=== PATIENT | male | born 1980 | race African-American/Black ===

== ENCOUNTER 2019-08-23 15:24 | Emergency (ER) | payer SELFPAY ==
[~2019-08-23] VITALS: Ht 182.9 cm; Wt 110.0 kg
--- NOTE | 2019-08-23 16:26 | RAD ---
CHEST AP ONLY History: Cough and sore throat.. Comparison: None FINDINGS: Note that the exam was obtained with lordotic positioning. Cardiomediastinal silhouette appears within normal limits. Low lung volumes. Slight elevation of the right hemidiaphragm. No evidence of pneumothorax. No evidence of pleural effusion. No evidence of focal infiltrate. Bones appear grossly intact. Small density is below the left clavicle, may be related to ossification at the coracoclavicular ligament attachment. IMPRESSION: No evidence of consolidating infiltrate. Electronically signed by: Armond Bazan MD (08/23/2019 4:22 PM) [facility]
[2019-08-23] MEDS ORDERED: IV NORMAL SALINE 1000ML BAG 1,000 ML IV SCH (16:51)
[2019-08-23] MEDS ORDERED: methylPREDNISolone SOD SUCC PF 125 MG/2 ML VIAL. IV ONE (17:00)
[2019-08-23] MEDS ORDERED: CLINDAMYCIN 900MG PREMIX 50 ML IV ONE (17:00)
[2019-08-23] MEDS ORDERED: KETOROLAC 30 MG/ML VIAL. IVP ONE (17:00)
--- NOTE | 2019-08-23 17:08 | PHYS DOC ---
Past Medical History Past Medical History: No Pertinent History (JITENDRA REIS MD) Past Surgical History: No Surgical History (JITENDRA REIS MD) Smoking Status: Never Smoker Alcohol Use: None (JITENDRA REIS MD) General Adult EDM: Chief Complaint: Sore throat HPI: HPI: Patient is a 39 year old male without history of medical problem who presents with complaint of sore throat. Patient states he has had sore throat for the last 1 week and was seen at urgent care and treated with Augmentin without improvement of his pain and complaining of dysphasia and constant pain in his throat and rated his pain 8/10. Patient denies fever, cough, myalgia, chest pain, shortness of breath, sore throat. (JITENDRA REIS MD) Review of Systems: Review of Systems: Constitutional: Denies fever or chills. [] Eyes: Denies change in visual acuity. [] HENT: Denies nasal congestion, report sore throat. [] Respiratory: Denies cough or shortness of breath. [] Cardiovascular: Denies chest pain or edema. [] GI: Denies abdominal pain, nausea, vomiting, bloody stools or diarrhea. [] : Denies dysuria. [] Musculoskeletal: Denies back pain or joint pain. [] Integument: Denies rash. [] Neurologic: Denies headache, focal weakness or sensory changes. [] Endocrine: Denies polyuria or polydipsia. [] Lymphatic: Denies swollen glands. [] Psychiatric: Denies depression or anxiety. [] (JITENDRA REIS MD) Heart Score: Risk Factors: Risk Factors: DM, Current or recent (<one month) smoker, HTN, HLP, family history of CAD, obesity. Risk Scores: Score 0 - 3: 2.5% MACE over next 6 weeks - Discharge Home Score 4 - 6: 20.3% MACE over next 6 weeks - Admit for Clinical Observation Score 7 - 10: 72.7% MACE over next 6 weeks - Early Invasive Strategies (JITENDRA REIS MD) Allergies: Allergies: Allergies Coded Allergies Type Severity Reaction Last Updated Verified No Known Drug Allergies 08/23/19 No (JITENDRA REIS MD) Physical Exam: PE: Constitutional: Well developed, well nourished,mild distress, non-toxic appearance. [] HENT: Normocephalic, atraumatic, bilateral external ears normal, oropharynx moist, tonsillar edema bilaterally with large amount of exudate, nose normal. [] Eyes: PERRLA, EOMI, conjunctiva normal, no discharge. [] Neck: Normal range of motion, no tenderness, supple, no stridor. [] Cardiovascular:Heart rate regular rhythm, no murmur [] Lungs & Thorax: Bilateral breath sounds clear to auscultation [] Abdomen: Bowel sounds normal, soft, no tenderness, no masses, no pulsatile masses. [] Skin: Warm, dry, no erythema, no rash. [] Back: No tenderness, no CVA tenderness. [] Extremities: No tenderness, no cyanosis, no clubbing, ROM intact, no edema. [] Neurologic: Alert and oriented X 3, normal motor function, normal sensory function, no focal deficits noted. [] Psychologic: Affect normal, judgement normal, mood normal. [] (JITENDRA REIS MD) Current Patient Data: Vital Signs: Vital Signs Date Time Temp Pulse Resp B/P (MAP) Pulse Ox O2 Delivery O2 Flow Rate FiO2 08/23/19 16:00 99.1 92 20 175/111 (132 97 Room Air 99.1 (JITENDRA REIS MD) EKG: EKG: [] (JITENDRA REIS MD) Radiology/Procedures: Radiology/Procedures: [facility] [address] [place] [address] IMAGING REPORT Signed PATIENT: DELIO HO ACCOUNT: [id number] : 1980 LOCATION: ER AGE: 39 SEX: M EXAM STATUS: REG ER ORD. PHYSICIAN: JITENDRA REIS MD REASON: Cough and sore throat PROCEDURE: CHEST AP ONLY CHEST AP ONLY History: Cough and sore throat.. Comparison: None FINDINGS: Note that the exam was obtained with lordotic positioning. Cardiomediastinal silhouette appears within normal limits. Low lung volumes. Slight elevation of the right hemidiaphragm. No evidence of pneumothorax. No evidence of pleural effusion. No evidence of focal infiltrate. Bones appear grossly intact. Small density is below the left clavicle, may be related to ossification at the coracoclavicular ligament attachment. IMPRESSION: No evidence of consolidating infiltrate. Electronically signed by: Armond Bazan MD (08/23/2019 4:22 PM) [facility] DICTATED and SIGNED BY: ARMOND BAZAN MD DATE: 08/23/191621 (JITENDRA REIS MD) Radiology/Procedures: [facility] [address] [place] [address] IMAGING REPORT Signed PATIENT: DELIO HO ACCOUNT: [id number] : 1980 LOCATION: ER AGE: 39 SEX: M EXAM STATUS: REG ER ORD. PHYSICIAN: JITENDRA REIS MD REASON: Sore throat, possible tonsillar abscess PROCEDURE: CT SOFT TISSUE NECK W/CONTRAST PQRS Compliance Statement: One or more of the following individualized dose reduction techniques were utilized for this examination: 1. Automated exposure control 2. Adjustment of the mA and/or kV according to patient size 3. Use of iterative reconstruction technique CT SOFT TISSUE NECK W/CONTRAST 08/23/2019 4:51 PM Indication: Sore throat, tonsillar abscess COMPARISON: None available. TECHNIQUE: Multiple axial CT images of the neck were obtained after the intravenous administration of 75 cc Omnipaque 300. Coronal and sagittal reformats are provided. FINDINGS: No suspicious enhancement is identified within the visualized portions of the brain parenchyma and posterior fossa. Orbits are normal in appearance. Direct Support Staff space appears intact. Parotid and submandibular spaces are normal. No suspicious abnormality is identified within the sublingual space, oral cavity and tongue base. Mastoid air cells are well aerated. There is a small mucus retention cyst in the right maxillary sinus. Fossa of Rosenmuller is intact. Parapharyngeal fat is preserved. There is bilateral tonsillar hypertrophy, right greater than left. Minimal striated enhancement may reflect tonsillitis. No definite abscess is visualized. No retropharyngeal effusion. Hypopharynx is intact. Larynx and trachea are normal in appearance. Thyroid gland is normal in appearance. A right level 3 lymph node measures 16 mm by short axis (series 2, image 33). A right level 2 cervical lymph node measures 17 mm by short axis (series 2, image 43). There is no retropharyngeal lymphadenopathy. No supraclavicular lymphadenopathy is identified. Visualized lungs are clear. Upper mediastinum is intact. Mild degenerative changes of the cervical spine are present. No suspicious osseous abnormality. IMPRESSION: Findings are compatible with tonsillitis, right greater than left without peritonsillar abscess or retropharyngeal effusion. Right-sided cervical lymphadenopathy predominantly involving the right level 2 and level 3 cervical lymph nodes most favors reactive process. 2-3 month follow-up CT neck may be of benefit if lymphadenopathy persists in order to exclude alternate etiology such as lymphoma or IgG4 related disease. Electronically signed by: John Fink MD (08/23/2019 6:46 PM) [facility] DICTATED and SIGNED BY: JOHN FINK MD DATE: 08/23/191845 (AYSHA MCCOY MD) Course & Med Decision Making: Course & Med Decision Making Pertinent Labs and Imaging studies are pending. Evaluation of patient inertial 39-year-old male patient with complaining of sore throat for 1 week that did not get better with treatment with Augmentin. Patie nt had bilateral tonsillar enlargement and exudate. Patient treated with IV fluids, Toradol, Solu-Medrol, clindamycin. CT and labs is pending. Sign out given to Dr. Mccoy at 1800 for further evaluation and final disposition. Discussed current findings and plan with patient and family, who acknowledge understanding and agreement. (JITENDRA REIS MD) Course & Med Decision Making CT reviewed - no abscess Will treat with IM shot of PCN (AYSHA MCCOY MD) Dragon Disclaimer: Dragon Disclaimer: This electronic medical record was generated, in whole or in part, using a voice recognition dictation system. (JITENDRA REIS MD) Departure Departure Impression: Primary Impression: Exudative tonsillitis Disposition: 01 HOME, SELF-CARE Condition: STABLE Referrals: NO PCP (PCP) Patient Instructions: Tonsillitis, [id number] Additional Instructions: Recommend tylenol as needed for fever Encourage fluids as able No evidence of abscess on CT findings Return to the ER with concern for swallowing continued fever/symptoms after 72 hours JITENDRA REIS MD Aug 23, 2019 17:08 AYSHA MCCOY MD Aug 23, 2019 19:00
[2019-08-23 17:22] LABS: BASO # 0.1 x10^3/uL (0.0-0.2); BASO % 1 % (0-3); EOS % 1 % (0-3); HEMATOCRIT 43.8 % (39.0-53.0); HEMOGLOBIN 14.5 g/dL (13.0-17.5); LYMPH # 1.8 x10^3/uL (1.0-4.8); LYMPH % 25 % (24-48); MEAN CORPUSCULAR HEMOGLOBIN 26 pg (25-35); MEAN CORPUSCULAR HGB CONC 33 g/dL (31-37); MEAN CORPUSCULAR VOLUME 80 fL (79-100); MONO # 1.1 x10^3/uL (0.0-1.1); MONO % 14 % (0-9); NEUT # 4.4 x10^3/uL (1.8-7.7); NEUT % 59 % (31-73); PLATELET COUNT 350 x10^3/uL (140-400); RED CELL DISTRIBUTION WIDTH 14.1 % (11.5-14.5); WHITE BLOOD COUNT 7.4 x10^3/uL (4.0-11.0)
[2019-08-23 17:50] LABS: CREATININE 1.2 mg/dL (0.7-1.3); GFR 81.6; MONONUCLEOSIS PATIENT NEGATIVE (NEGATIVE); POTASSIUM 4.2 mmol/L (3.5-5.1)
[2019-08-23 17:53] LABS: ALBUMIN 3.5 g/dL (3.4-5.0); ALBUMIN/GLOBULIN RATIO 0.7 (1.0-1.7); TOTAL BILIRUBIN 0.6 mg/dL (0.2-1.0); TOTAL PROTEIN 8.3 g/dL (6.4-8.2)
[2019-08-23] MEDS ORDERED: CONTRAST GIVEN. MC PRN (18:00)
[2019-08-23] MEDS ORDERED: IOHEXOL 300 MG/ML 100ML VIAL. IV ONE (18:00)
--- NOTE | 2019-08-23 18:49 | RAD ---
PQRS Compliance Statement: One or more of the following individualized dose reduction techniques were utilized for this examination: 1. Automated exposure control 2. Adjustment of the mA and/or kV according to patient size 3. Use of iterative reconstruction technique CT SOFT TISSUE NECK W/CONTRAST 08/23/2019 4:51 PM Indication: Sore throat, tonsillar abscess COMPARISON: None available. TECHNIQUE: Multiple axial CT images of the neck were obtained after the intravenous administration of 75 cc Omnipaque 300. Coronal and sagittal reformats are provided. FINDINGS: No suspicious enhancement is identified within the visualized portions of the brain parenchyma and posterior fossa. Orbits are normal in appearance. [employer] space appears intact. Parotid and submandibular spaces are normal. No suspicious abnormality is identified within the sublingual space, oral cavity and tongue base. Mastoid air cells are well aerated. There is a small mucus retention cyst in the right maxillary sinus. Fossa of Rosenmuller is intact. Parapharyngeal fat is preserved. There is bilateral tonsillar hypertrophy, right greater than left. Minimal striated enhancement may reflect tonsillitis. No definite abscess is visualized. No retropharyngeal effusion. Hypopharynx is intact. Larynx and trachea are normal in appearance. Thyroid gland is normal in appearance. A right level 3 lymph node measures 16 mm by short axis (series 2, image 33). A right level 2 cervical lymph node measures 17 mm by short axis (series 2, image 43). There is no retropharyngeal lymphadenopathy. No supraclavicular lymphadenopathy is identified. Visualized lungs are clear. Upper mediastinum is intact. Mild degenerative changes of the cervical spine are present. No suspicious osseous abnormality. IMPRESSION: Findings are compatible with tonsillitis, right greater than left without peritonsillar abscess or retropharyngeal effusion. Right-sided cervical lymphadenopathy predominantly involving the right level 2 and level 3 cervical lymph nodes most favors reactive process. 2-3 month follow-up CT neck may be of benefit if lymphadenopathy persists in order to exclude alternate etiology such as lymphoma or IgG4 related disease. Electronically signed by: Debby Carnes MD (08/23/2019 6:46 PM) [facility]
[2019-08-23] MEDS ORDERED: PENICILLIN G BENZATHINE LA 1,200,000 UNIT/2 ML DISP.SYRIN. IM ONE (19:15)
[2019-08-23 19:30] VITALS: BP 194/114
== END 2019-08-23 19:35 | disposition home or self-care (01) ==
LOC: ER 15:24
DX: J03.90 Acute tonsillitis, unspecified (principal)
CPT/HCPCS: 36415; 70491; 71045; 80053; 83605; 85025; 86308; 87040; 87070; 87880; 96365; 96372; 96375; 99285; J0561; J1885; J2930; J3490; J7030; Q9967

== ENCOUNTER 2019-09-05 00:27 | Emergency (ER) | payer SELFPAY ==
[~2019-09-05] VITALS: Ht 182.9 cm; Wt 145.0 kg
[2019-09-05] MEDS ORDERED: ONDA4TAB12 PO (00:47)
[2019-09-05] MEDS ORDERED: AMOX1TAB61 PO (00:47)
--- NOTE | 2019-09-05 00:47 | PHYS DOC ---
Past Medical History Past Medical History: No Pertinent History Past Surgical History: No Surgical History Smoking Status: Never Smoker Alcohol Use: None General Adult EDM: Chief Complaint: DIFFICULTY SWALLOWING HPI: HPI: Patient is a 39 year old male who presents with complaint of coughing up brown sputum as well as bloating and out of his nose. Patient states that it is been going on for the last couple weeks. He was seen here recently for the same comp laint and had an had received a shot of antibiotics but no prescription. Patient states that it started to get better but has gotten worse again. He indicates he has pressure in his face and sinus drainage. He also indicates that at times he has had some vomiting and states that he has vomited up brown colored thick mucus, the same color as he is blowing out of his nose.[] Review of Systems: Review of Systems: Constitutional: Denies fever or chills. [] HENT: Positive sinus congestion and sore throat. [] Respiratory: Positive cough without shortness of breath. [] Cardiovascular: Denies chest pain or edema. [] Neurologic: Denies headache, focal weakness or sensory changes. [] Heart Score: Risk Factors: Risk Factors: DM, Current or recent (<one month) smoker, HTN, HLP, family history of CAD, obesity. Risk Scores: Score 0 - 3: 2.5% MACE over next 6 weeks - Discharge Home Score 4 - 6: 20.3% MACE over next 6 weeks - Admit for Clinical Observation Score 7 - 10: 72.7% MACE over next 6 weeks - Early Invasive Strategies Allergies: Allergies: Allergies Coded Allergies Type Severity Reaction Last Updated Verified No Known Drug Allergies 08/23/19 No Physical Exam: PE: Constitutional: Well developed, well nourished, no acute distress, non-toxic appearance. [] HENT: Normocephalic, atraumatic, bilateral external ears normal, pharyngeal erythema without exudates is noted. [] Cardiovascular:Heart rate regular rhythm, no murmur [] Lungs & Thorax: Bilateral breath sounds clear to auscultation [] Extremities: No tenderness, no cyanosis, no clubbing, ROM intact, no edema. [] Neurologic: Alert and oriented X 3, no focal deficits noted. [] EKG: EKG: [] Radiology/Procedures: Radiology/Procedures: [] Course & Med Decision Making: Course & Med Decision Making Pertinent Labs and Imaging studies reviewed. (See chart for details) [] Gianni Disclaimer: Gianni Disclaimer: This electronic medical record was generated, in whole or in part, using a voice recognition dictation system. Departure Departure Impression: Primary Impression: Acute sinusitis Qualified Codes: J01.90 - Acute sinusitis, unspecified Disposition: HOME, SELF-CARE Condition: STABLE Referrals: NO PCP (PCP) Patient Instructions: Sinusitis Scripts Ondansetron (ONDANSETRON ODT) 4 Mg Tab.rapdis 1 TAB PO PRN Q6-8HRS PRN for NAUSEA, #15 TAB Prov: SANTOS SOTELO Jr. DO 09/05/19 Amoxicillin/Potassium Clav (AUGMENTIN 875-125 TABLET) 1 Each Tablet 1 TAB PO BID for 10 Days, #20 TAB 0 Refills Prov: SANTOS SOTELO Jr. DO 09/05/19 SANTOS SOTELO Jr. DO Sep 05, 2019 00:47
[2019-09-05 00:56] VITALS: BP 146/67
[2019-09-05] MEDS ORDERED: ONDANSETRON ODT 4 MG TAB.RAPDIS. PO ONE (01:15)
[2019-09-05] MEDS ORDERED: AMOXICILLIN/K CLAV 875/125MG TABLET. PO ONE (01:15)
== END 2019-09-05 00:56 | disposition home or self-care (01) ==
LOC: ER 00:27
DX: J01.90 Acute sinusitis, unspecified (principal)
CPT/HCPCS: 99283